=== PATIENT | female | born 1985 | race American Indian/Alaskan Native ===

== ENCOUNTER 2016-10-03 14:52 | Emergency (ER) | payer MEDICAID ==
[2016-10-03 15:13] VITALS: RESP 18; TEMP 98.5; O2SAT 98; BMI 47.5
--- NOTE | 2016-10-03 15:15 | C.PDOC ---
History Of Present Illness 30 y/o obese female with hx of migraines as a teenager, c/o right sided constant headache for 5 days, diminishes after taking excedrin migraine twice a day, but not fully resolved. headache gradual onset, preceded by nausea; no vomiting, no neck stiffness, no blurred vision, no fever. headache is similar to migraines she had as teenager. no photophobia. Time Seen by Provider: 10/03/16 15:14 Chief Complaint (Nursing): Headache History Per: Patient History/Exam Limitations: no limitations Onset/Duration Of Symptoms: Days (5) Current Symptoms Are (Timing): Still Present Severity: Mild Pain Scale Rating Of: 5 Quality: "Pain" Preceeding Symptoms: Known Migraine Symptoms. denies: Visual Disturbances Associated Symptoms: Nausea. denies: Photophobia, Blurred Vision, Vomiting, Extremity Weakness Recent travel outside of the [place]: No Past Medical History Reviewed: Historical Data, Nursing Documentation, Vital Signs Vital Signs: Last Vital Signs Temp 98.5 F 10/03/16 15:09 Pulse 60 10/03/16 16:49 Resp 18 10/03/16 16:49 BP 113/78 10/03/16 16:49 Pulse Ox 98 10/03/16 23:05 - Medical History PMH: Migraine Surgical History: No Surg Hx - [facility] Procedures DELIVERY OF PRODUCTS OF CONCEPTION, EXTERNAL APPROACH (04/22/16) MANUAL ASSIST DELIV NEC (12/08/13) MMR ADMINISTRATION (12/08/13) VACCINATION NEC (12/08/13) Family History: States: Unknown Family Hx - Social History Hx Tobacco Use: No Hx Alcohol Use: No Hx Substance Use: No - Immunization History Hx Tetanus Toxoid Vaccination: No Hx Influenza Vaccination: Yes Hx Pneumococcal Vaccination: No Review Of Systems Constitutional: Negative for: Fever, Chills Eyes: Negative for: Vision Change, Conjunctivae Inflammation ENT: Negative for: Ear Pain, Nose Pain Cardiovascular: Negative for: Chest Pain Respiratory: Negative for: Cough Gastrointestinal: Positive for: Nausea. Negative for: Vomiting, Abdominal Pain Musculoskeletal: Negative for: Neck Pain Neurological: Positive for: Headache. Negative for: Weakness, Numbness, Confusion, Altered Mental Status Physical Exam - Physical Exam Appears: Non-toxic (obese), No Acute Distress Skin: Warm, Dry Head: Atraumatic, Normacephalic Eye(s): bilateral: Normal Inspection, PERRL, EOMI Ear(s): Bilateral: Normal Oral Mucosa: Moist Neck: Normal ROM, Supple (`) Chest: Symmetrical, No Deformity, No Tenderness Cardiovascular: Rhythm Regular, No Murmur Respiratory: Normal Breath Sounds, No Rales, No Rhonchi, No Wheezing Gastrointestinal/Abdominal: Soft, No Tenderness Neurological/Psych: Oriented x3, Normal Speech, Normal Cognition, Normal Cranial Nerves, No Cerebellar Signs, Normal Motor, Normal Sensation Gait: Steady ED Course And Treatment O2 Sat by Pulse Oximetry: 98 Medical Decision Making Medical Decision Makin30 y/o female with right sided headache x 5 days. similar to migraines as teenager. no fever, neck stiffness or rash. will check ucg, give iv reglan and re-eval. 422 pm pt reports headache resolved. resting comfortably. Disposition Counseled Patient/Family Regarding: Diagnosis, Need For Followup - Disposition Disposition: HOME/ ROUTINE Disposition Time: 16:41 Condition: IMPROVED Additional Instructions: Please follow up with the medical clinic at [facility] in an few days. REturn to ER for any worsening symptoms. Instructions: Migraine Headache (ED) Forms: General Discharge Instructions - Clinical Impression Clinical Impression: Headache
[2016-10-03 16:50] VITALS: BP 113/78; PULSE 60
== END 2016-10-03 16:50 | disposition home or self-care (01) ==
LOC: C.ER 14:52
DX: R51 Headache (principal)
CPT/HCPCS: 99284; J2765